=== PATIENT | female | born 2000 | race Caucasian/White ===

== ENCOUNTER 2023-05-15 18:15 | Emergency (ER) | payer OTHER ==
[~2023-05-15] VITALS: Ht 149.9 cm; Wt 49.9 kg
[2023-05-15 18:21] VITALS: BP_SYST 117; PULSE 75; RESP 19; TEMP 98; O2SAT 100
[2023-05-15] MEDS ORDERED: NALOXONE HCL 2 MG/2 ML SYR IVP ONE ×2 (18:45→22:00)
[2023-05-15] MEDS ORDERED: ONDANSETRON HCL 4 MG/2 ML VIAL IVP ONE ×2 (18:45→23:00)
[2023-05-15] MEDS ORDERED: NACL 0.9% 1,000 ML IV ONE (19:00)
[2023-05-15 20:04] LABS: BASOPHILS % (AUTO) 0.5 % (0.0-2.0); EOSINOPHILS # (AUTO) 0.2 K/uL (0.0-0.4); HEMOGLOBIN 11.4 g/dL (12.0-16.0); LYMPHOCYTES # (AUTO) 1.1 K/uL (1.0-5.5); LYMPHOCYTES % (AUTO) 14.2 % (20.5-51.5); MEAN CORPUSCULAR HEMOGLOBIN 26 pg (27-31); MEAN CORPUSCULAR HGB CONC 32 % (32-36); MEAN CORPUSCULAR VOLUME 81 fL (79.0-98.0); MONOCYTES # (AUTO) 0.5 K/uL (0.0-1.0); MONOCYTES % (AUTO) 7.2 % (1.7-9.3); NEUTROPHILS # (AUTO) 5.7 K/uL (1.8-7.7); NEUTROPHILS % (AUTO) 76.1 % (40.0-70.0); PLATELET COUNT (AUTO) 276 K/uL (130-430); RED BLOOD CELL COUNT(AUTO) 4.33 MIL/uL (4.2-6.2); RED CELL DISTRIBUTION WIDTH 16.5 % (9.0-15.0); WHITE BLOOD COUNT (AUTO) 7.5 K/uL (4.8-10.8)
[2023-05-15 20:13] LABS: SERUM HCG (QUALITATIVE) NEGATIVE (NEGATIVE)
[2023-05-15 20:14] LABS: INR 1.1 (0.8-1.2); PROTHROMBIN TIME 11.7 SECS (9.5-12.5)
[2023-05-15 20:17] LABS: ANION GAP 6 (5-15); CALCIUM 8.3 mg/dL (8.4-11.0); CARBON DIOXIDE 27 mmol/L (23-29); CHLORIDE 106 mmol/L (98-107); CREATININE 0.68 mg/dL (0.55-1.30); GFR AFRICAN AMERICAN 140 mL/min (>90); GLUCOSE 93 mg/dL (74-106); POTASSIUM 3.5 mmol/L (3.5-5.1); SODIUM SERUM 139 mmol/L (136-145); UREA NITROGEN, BLOOD 10 mg/dL (8-21)
[2023-05-15 20:18] LABS: GFR NON AFRICAN-AMERICAN 116 mL/min (>90)
[2023-05-15 20:23] LABS: ACETAMINOPHEN < 1 ug/mL (1-30); ALANINE AMINOTRANSFERASE 24 U/L (12-78); ALBUMIN 3.2 g/dL (3.4-4.8); ASPARTATE AMINOTRANSFERASE 15 U/L (10-37); CREATINE KINASE, TOTAL 47 U/L (26-192); SALICYLATE < 1 mg/dL (3-30); TOTAL BILIRUBIN 0.4 mg/dL (0.0-1.0); TOTAL PROTEIN, SERUM 6.5 g/dL (6.4-8.3)
[2023-05-15 20:24] LABS: ALCOHOL, BLOOD < 3 mg/dL (<10)
[2023-05-15 21:19] LABS: BILIRUBIN,URINE NEGATIVE (NEGATIVE); BLOOD, URINE NEGATIVE (NEGATIVE); CLARITY/URINE CLEAR (CLEAR); COLOR,URINE YELLOW (YELLOW); GLUCOSE,URINE NEGATIVE (NEGATIVE); KETONES,URINE TRACE (NEGATIVE); LEUKOCYTE ESTERASE ,URINE NEGATIVE (NEGATIVE); NITRITE, URINE NEGATIVE (NEGATIVE); PH,URINE 6.5 (5.0-8.0); PROTEIN URINE NEGATIVE (NEGATIVE); UROBILINOGEN,URINE 0.2 (0.2-1.0)
[2023-05-15 21:27] LABS: BARBITURATE, URINE NEGATIVE (NEG <=200); BENZODIAZEPINE, URINE NEGATIVE (NEG <=150); CANNABINOID, URINE POSITIVE (NEG <=50); COCAINE, URINE NEGATIVE (NEG <=150); METHAMPHETAMINES SCREEN,URINE POSITIVE (NEG <=500); OPIATE, URINE NEGATIVE (NEG <=100); PHENCYCLIDINE SCREEN,URINE NEGATIVE (NEG <=25); UR TRICYCLIC ANTIDEPRESSANTS NEGATIVE (NEG <=300); URINE AMPHETAMINE POSITIVE (NEG <=500); URINE METHADONE NEGATIVE (NEG <=200); URINE OXYCODONE SCREEN NEGATIVE (NEG <=100); URINE PROPOXYPHENE SCREEN NEGATIVE (NEG <=300)
[2023-05-15] MEDS ORDERED: KETOROLAC TROMETHAMINE 30 MG VIAL IVP ONE (22:00)
[2023-05-15] MEDS ORDERED: NALO4SPR NS (22:04)
[2023-05-16 00:21] VITALS: BP_SYST 96; PULSE 79; RESP 15; O2SAT 98
== END 2023-05-16 01:43 | disposition home or self-care (01) ==
LOC: SED 18:15
DX: T40.2X1A Poisoning by other opioids, accidental (unintentional), initial encounter (principal); F14.10 Cocaine abuse, uncomplicated; F15.10 Other stimulant abuse, uncomplicated; F12.90 Cannabis use, unspecified, uncomplicated; Z79.899 Other long term (current) drug therapy; Y92.89 Other specified places as the place of occurrence of the external cause
CPT/HCPCS: 99291; 96374; 70450; 71045; 96375; 96361; 80307; 80053; 82550; 84703; 85025; 85610; 85730; 84484; 36415; 93005; 76376; 96376; 99292; 81003; 81001; J1885; J2310; J2405; J7030; G0480; G0481; G0482